=== PATIENT | female | born 1960 | race African-American/Black ===

== ENCOUNTER → 2018-12-31 | Day surgery (SDC) | payer MEDICARE ==
[2018-12-24 16:09] LABS: BASOPHILS # (AUTO) 0.1 (0.0-0.1); BASOPHILS % 2.1 % (0.0-1.0); EOSINOPHILS % 22.5 % (0.0-6.0); HEMATOCRIT 37.8 % (34.2-44.1); HEMOGLOBIN 11.8 g/dL (12.0-16.0); LYMPHOCYTES # (AUTO) 0.7 (1.0-3.2); MEAN CORPUSCULAR HEMOGLOBIN 28.4 pg (28-32); MEAN CORPUSCULAR HGB CONC 31.2 g/dL (31-35); MEAN CORPUSCULAR VOLUME 90.9 fL (81-99); MONOCYTES # (AUTO) 0.7 (0.2-0.8); MONOCYTES % 15.3 % (4.4-11.3); NEUTROPHILS # (AUTO) 1.9 (2.1-6.9); NEUTROPHILS % 44.1 % (38.7-80.0); PLATELET COUNT 146 x10e3/uL (140-360); RED BLOOD COUNT 4.16 x10e6/uL (3.6-5.1); RED CELL DISTRIBUTION WIDTH 16.5 % (11.7-14.4)
[~2018-12-31] MED LIST: CLONAZEPAM1 MG PO; DOXEPIN HCL25 MG PO; FUROSEMIDE40 MG PO; HYDRALAZINE HCL25 MG PO; HYDROXYZINE HCL25 MG PO; LYRICA50 MG PO; MIDAZOLAM HCL 2 MG/2 ML VIAL ONE; ONDANSETRON ODT8 MG PO; PROCARDIA XL30 MG PO; PROPOFOL IV EMULSION 10 MG/ML 50 ML VIAL ONE; SODIUM CHLORIDE 0.9% 500ML 500 ML ONE; VIT D3 PO; [UNRECOGNIZED DRUG - OTHER] PO
--- OUTSIDE RECORDS SUMMARY | 2018-12-31 09:30 | XMS REPORT | Clinical Summary ---
Author Author Lydia Mandaen Organization Lydia Mandaen Address Unknown Phone Unavailable Care Team Providers Care Commercial Green Building Designer Name Role Phone Vikki Gamez MD PCP Allergies Comments Active Allergy Reactions Severity Noted Date Clindamycin Rash Low 03/01/2018 Penicillins Anaphylaxis High 03/01/2018 Medications End Date Status Medication Sig Dispensed Refills Start Date Active lisinopril Take 20 mg by 0 (PRINIVIL,ZESTRIL) 20 mg mouth daily. tablet Active amLODIPine (NORVASC) 5 mg Take 5 mg by 0 tablet mouth daily. 03/05/2018 azithromycin (ZITHROMAX) Take first 2 6 tablet 0 250 MG tablet tablets 8 together, then 1 every day until finished. 03/08/2018 promethazine-codeine Take 5 mL by 118 mL 0 (PHENERGAN with CODEINE) mouth every 4 8 6.25-10 mg/5 mL syrup (four) hours as needed for cough for up to 7 days. 04/13/2018 hydrOXYzine (ATARAX) 25 Take 1 tablet 30 tablet 0 MG tablet (25 mg total) 8 by mouth 2 (two) times a day as needed for itching for up to 15 days. Active Problems Problem Noted Date Dyspnea 03/28/2018 Encounters Care Team Description Date Type Specialty Christofer Cortés MD Joglekar, Swati, MD Bavare, Arusha Amod, MD Dyspnea, unspecified type (Primary Dx); Unstable angina 03/28/2018 Emergency General Internal Medicine - 03/29/2018 Lewis Goldman, Hypervolemia, unspecified hypervolemia type (Primary Dx) 03/01/2018 Emergency Emergency Medicine - 03/02/2018 after 12/30/2017 Social History Date Tobacco Use Types Packs/Day Years Used Never Smoker Smokeless Tobacco: Never Used Alcohol Use Drinks/Week oz/Week Comments No Sex Assigned at Date Recorded Not on file Industry Job Start Date Occupation Not on file Not on file Not on file Travel End Travel History Travel Start No recent travel history available. Last Filed Vital Signs Time Taken Vital Sign Reading 03/29/2018 5:45 PM CDT Blood Pressure 154/87 03/29/2018 5:45 PM CDT Pulse 72 03/29/2018 5:45 PM CDT Temperature 36.2 C (97.1 F) 03/29/2018 5:45 PM CDT Respiratory Rate 18 03/29/2018 5:45 PM CDT Oxygen Saturation 98% - Inhaled Oxygen - Concentration 03/28/2018 3:39 PM CDT Weight 86.2 kg (190 lb) 03/28/2018 10:28 PM CDT Height 165.1 cm (5' 5") 03/28/2018 3:39 PM CDT Body Mass Index 31.62 Plan of Treatment Health Maintenance Due Date Last Done Comments CERVICAL CANCER SCREENING 1982 BREAST CANCER SCREENING 2011 COLON CANCER SCREENING 2011 SHINGLES VACCINES (#1) 2011 INFLUENZA VACCINE 03/27/2019 07/11/2000, 06/03/1999 Procedures Comments Procedure Name Priority Date/Time Associated Diagnosis HEPATITIS B SURFACE AB, Routine 03/29/2018 QUANTITATIVE 2:40 PM CDT POC GLUCOSE Routine 03/29/2018 11:44 AM CDT HEPATITIS B SURFACE STAT 03/29/2018 ANTIGEN 10:09 AM CDT PROTHROMBIN TIME WITH INR Routine 03/29/2018 10:09 AM CDT HC COMPLETE BLD COUNT Routine 03/29/2018 W/AUTO DIFF 8:31 AM CDT POC GLUCOSE Routine 03/29/2018 8:19 AM CDT HEMOGLOBIN A1C Routine 03/29/2018 5:08 AM CDT ZZESTIMATED GFR Routine 03/29/2018 5:08 AM CDT PHOSPHORUS LEVEL Routine 03/29/2018 5:08 AM CDT MAGNESIUM LEVEL Routine 03/29/2018 5:08 AM CDT HC COMPLETE BLD COUNT Routine 03/29/2018 W/AUTO DIFF 5:08 AM CDT BASIC METABOLIC PANEL Routine 03/29/2018 5:08 AM CDT B NATRIURETIC PEPTIDE Routine 03/29/2018 5:08 AM CDT POC GLUCOSE Routine 03/29/2018 4:11 AM CDT POC GLUCOSE Routine 03/28/2018 11:12 PM CDT PHOSPHORUS LEVEL Routine 03/28/2018 4:35 PM CDT ZZESTIMATED GFR Routine 03/28/2018 4:35 PM CDT B NATRIURETIC PEPTIDE Routine 03/28/2018 4:35 PM CDT TROPONIN Routine 03/28/2018 4:35 PM CDT COMPREHENSIVE METABOLIC Routine 03/28/2018 PANEL 4:35 PM CDT PROTHROMBIN TIME WITH INR Routine 03/28/2018 4:35 PM CDT HC COMPLETE BLD COUNT Routine 03/28/2018 W/AUTO DIFF 4:35 PM CDT ECG ED PRELIMINARY Routine 03/28/2018 INTERPRETATION 4:34 PM CDT ECG 12-LEAD STAT 03/28/2018 4:22 PM CDT XR CHEST 1 VW PORTABLE STAT 03/28/2018 4:13 PM CDT ECG ED PRELIMINARY Routine 03/01/2018 INTERPRETATION 10:51 PM CDT TROPONIN STAT 03/01/2018 8:30 PM CDT CREATINE KINASE, TOTAL STAT 03/01/2018 (CPK) 8:30 PM CDT ZZESTIMATED GFR STAT 03/01/2018 8:30 PM CDT B NATRIURETIC PEPTIDE STAT 03/01/2018 8:30 PM CDT BASIC METABOLIC PANEL STAT 03/01/2018 8:30 PM CDT HC COMPLETE BLD COUNT STAT 03/01/2018 W/AUTO DIFF 8:30 PM CDT XR CHEST 2 VW STAT 03/01/2018 8:10 PM CDT ECG 12-LEAD STAT 03/01/2018 7:36 PM CDT after 12/30/2017 Results * Hepatitis B surface Ab, quantitative (03/29/2018 2:40 PM CDT) Hepatitis B surface Ab 4.89 IU/L [facility] Comment: The anti-HBs is less than 10 IU/L and is therefore negative. There is no evidence of recovery from hepatitis B infection or evidence of antibody response to HBV vaccination. An anti-HBs result greater than or equal to 10 IU/L implies immunity. For post-vaccination antibody testing guidelines for the general public refer to MMWR August 18, 2005/Vol. 54(No. 16);1-23, and for healthcare workers refer to MMWR August 15, 2013/Vol. 62(No. 10);1-19. Reference Interval: anti-HBs 9.99 IU/L or less ....... Negative 10.00 IU/L or greater .... Positive Results greater than 1,000.00 IU/L are reported as greater than 1,000.00 IU/L. This assay should not be used for blood donor screening, associated re-entry protocols, or for screening Human Cell, Tissues and Cellular and Tissue-Based Products (HCT/P). Performed by [facility], [address] [place], [place] [id number] [email or web address], Ed Hogan MD - Lab. Director Specimen Serum Performing Organization Address City/State/Zipcode Phone Number [facility] [address] [place] [address] * POC glucose (03/29/2018 11:44 AM CDT) Only the most recent of 4 results within the time period is included. POC glucose 118 (H) 65 - 100 mg/dL [facility] Comment: PATHOLOGY AND Meter ID: [id number] GENOMIC MEDICINE Recycling Program Manager: Josiane Patton Performing Organization Address City/[facility]/Zipcode Phone Number [address] [place] [address] PATHOLOGY AND GENOMIC MEDICINE * Hepatitis B surface antigen (03/29/2018 10:09 AM CDT) Hepatitis B surface Ag Non-reactive Non-reactive [facility] PATHOLOGY AND [employer] [facility] Specimen Blood Performing Organization Address City/[facility] [place] [address] PATHOLOGY AND [employer] [facility] * Prothrombin time with INR (03/29/2018 10:09 AM CDT) Only the most recent of 2 results within the time period is included. Prothrombin time 16.1 (H) 12.0 - 15.0 sec [facility] PATHOLOGY AND GENOMIC MEDICINE INR 1.27 (H) 0.92 - 1.12 [facility] Comment: PATHOLOGY AND For patients on anticoagulant GENOMIC MEDICINE therapy, reference ranges below: Indication: INR Value Treatment of Venous Thrombosis, 2.0-3.0 pulmonary emboli, or prophylaxis of a venous thrombosis, or systemic emboli. High dose, high risk patients 3.0-4.5 with mechanical valves. NOTE:INR values over 3.0 are sometimes associated with gastrointestinal hemorrhage, especially values over 4.0. Specimen Blood Performing Organization Address City/[facility] [place] [place] [address] PATHOLOGY AND [employer] [facility] * CBC with platelet and differential (03/29/2018 8:31 AM CDT) Only the most recent of 4 results within the time period is included. WBC 5.8 4.2 - 11.0 k/uL [facility] PATHOLOGY AND GENOMIC MEDICINE RBC 4.63 4.04 - 5.86 m/uL [facility] PATHOLOGY AND GENOMIC MEDICINE HGB 12.5 11.5 - 15.3 g/dL [facility] PATHOLOGY AND GENOMIC MEDICINE HCT 40.3 34.0 - 45.0 % [facility] PATHOLOGY AND GENOMIC MEDICINE MCV 87.0 80.0 - 98.0 fL [facility] PATHOLOGY AND GENOMIC MEDICINE MCH 27.0 27.0 - 34.0 pg [facility] PATHOLOGY AND GENOMIC MEDICINE MCHC 31.0 (L) 31.5 - 36.5 g/dL [facility] PATHOLOGY AND GENOMIC MEDICINE RDW - SD 53.8 (H) 37.0 - 51.0 fL [facility] PATHOLOGY AND GENOMIC MEDICINE MPV 9.7 7.4 - 10.4 fL [facility] PATHOLOGY AND GENOMIC MEDICINE Platelet count 159 150 - 400 k/uL [facility] PATHOLOGY AND GENOMIC MEDICINE Nucleated RBC 0.00 /100 WBC [facility] PATHOLOGY AND GENOMIC MEDICINE Neutrophils 53.8 36.0 - 66.0 % [facility] PATHOLOGY AND GENOMIC MEDICINE Lymphocytes 22.6 (L) 24.0 - 44.0 % [facility] PATHOLOGY AND GENOMIC MEDICINE Monocytes 11.8 (H) 0.0 - 6.0 % [facility] PATHOLOGY AND GENOMIC MEDICINE Eosinophils 10.8 (H) 0.0 - 6.0 % [facility] PATHOLOGY AND GENOMIC MEDICINE Basophils 0.7 0.0 - 1.2 % [facility] PATHOLOGY AND GENOMIC MEDICINE Immature granulocytes 0.3 0.0 - 1.0 % [facility] PATHOLOGY AND GENOMIC MEDICINE Specimen Blood Performing Organization Address City/State/Zipcode Phone Number [place] [phone] [place] [address] PATHOLOGY AND GENOMIC MEDICINE * Estimated GFR (03/29/2018 5:08 AM CDT) Only the most recent of 3 results within the time period is included. GFR Non Af Amer 5 (A) mL/min/1.73 m2 [facility] PATHOLOGY AND GENOMIC MEDICINE GFR Af Amer 6 (A) mL/min/1.73 m2 [facility] Comment: PATHOLOGY AND Chronic kidney disease: <60 GENOMIC MEDICINE mL/min/1.73m2 Kidney failure: <15 mL/min/1.73m2 The estimated GFR is calculated from the IDMS-traceable Modification of Diet in Renal Disease Equation. The accuracy of the calculation is poor when the creatinine is normal. Calculated values >90 mL/min/1.73m2 are not reported. This equation has not been validated in children (<18 years), women, the elderly (>70 years), or ethnic groups other than Caucasians and Americans. Specimen Plasma specimen Performing Organization Address City/[facility] [place] [address] PATHOLOGY AND [facility] MEDICINE * Phosphorus level (03/29/2018 5:08 AM CDT) Only the most recent of 2 results within the time period is included. Phosphorus 5.0 (H) 2.4 - 4.5 mg/dL [facility] OF PATHOLOGY AND [facility] MEDICINE Specimen Plasma specimen Performing Organization Address [facility] [place] [address] PATHOLOGY AND [facility] MEDICINE * B natriuretic peptide (03/29/2018 5:08 AM CDT) Only the most recent of 3 results within the time period is included. BNP 3,350 (H) 0 - 100 pg/mL [facility] PATHOLOGY AND [employer] [facility]ICINE Specimen Blood Performing Organization Address [facility] [place] [address] PATHOLOGY AND [employer] [facility]ICINE * Magnesium level (03/29/2018 5:08 AM CDT) Magnesium 2.00 1.60 - 2.60 mg/dL [facility] PATHOLOGY AND [employer] [facility]INE Specimen Plasma specimen Performing Organization Address [facility] [place] [address] PATHOLOGY AND [employer] [facility]ICINE * Hemoglobin A1c (03/29/2018 5:08 AM CDT) Hemoglobin A1C 7.1 (H) 4.0 - 6.0 % [facility] Comment: PATHOLOGY AND GENOMIC MEDICINE Less than 6% - Goal of therapy for Type II Diabetes Less than 7%-Goal of therapy for Type I Diabetes Less than 8%-Accepta ble control for Type I or Type II Diabetes Greater than 8%-Unacceptabl e control; action indicated. ([id number]) Specimen Blood Performing Organization Address City/[facility]/Zipcode Phone Number [address] [place] [address] PATHOLOGY AND GENOMIC MEDICINE * Basic metabolic panel (03/29/2018 5:08 AM CDT) Only the most recent of 2 results within the time period is included. Sodium 130 (L) 135 - 150 mEq/L [facility] PATHOLOGY AND GENOMIC MEDICINE Potassium 4.0 3.5 - 5.0 mEq/L [facility] PATHOLOGY AND GENOMIC MEDICINE Chloride 91 (L) 98 - 112 mEq/L [facility] PATHOLOGY AND GENOMIC MEDICINE CO2 26 24 - 31 mmol/L [facility] PATHOLOGY AND GENOMIC MEDICINE Anion gap 13@ANIO 7 - 15 mEq/L [facility] OF PATHOLOGY AND GENOMIC MEDICINE BUN 39 (H) 7 - 18 mg/dL [facility] PATHOLOGY AND GENOMIC MEDICINE Creatinine 8.80 (H) 0.50 - 0.90 mg/dL [facility] PATHOLOGY AND GENOMIC MEDICINE Glucose 129 (H) 65 - 100 mg/dL [facility] PATHOLOGY AND GENOMIC MEDICINE Calcium 8.6 8.3 - 10.2 mg/dL [facility] PATHOLOGY AND [employer] [facility] Specimen Plasma specimen Performing Organization Address [facility] Phone Number [address] [place] [address] PATHOLOGY AND [employer] [facility]ICINE * Troponin (03/28/2018 4:35 PM CDT) Only the most recent of 2 results within the time period is included. Troponin <0.30 0.00 - 0.30 ng/mL [facility] Comment: PATHOLOGY AND 0.11 - 1.49 GENOMIC MEDICINE ng/mlMay indicate increased risk of acute coronary syndrome. >=1.5 ng/ml Consistent with acute myocardial infarction. The diagnostic value of a single normal or non-diagnostic result is questionable.Serial samples at 2-6 hour intervals are required to rule out acute myocardial injury. Specimen Plasma specimen Performing Organization Address City/State/Zipcode Phone Number [address] [place] [address] PATHOLOGY AND [employer] [facility] * Comprehensive metabolic panel (03/28/2018 4:35 PM CDT) Sodium 130 (L) 135 - 150 mEq/L [facility] DEPARTMENT OF PATHOLOGY AND GENOMIC MEDICINE Potassium 3.9 3.5 - 5.0 mEq/L [facility] PATHOLOGY AND GENOMIC MEDICINE Chloride 90 (L) 98 - 112 mEq/L [facility] PATHOLOGY AND GENOMIC MEDICINE CO2 24 24 - 31 mmol/L [facility] PATHOLOGY AND GENOMIC MEDICINE Anion gap 16@ANIO (H) 7 - 15 mEq/L [facility] OF PATHOLOGY AND GENOMIC MEDICINE BUN 37 (H) 7 - 18 mg/dL [facility] PATHOLOGY AND GENOMIC MEDICINE Creatinine 8.30 (H) 0.50 - 0.90 mg/dL [facility] PATHOLOGY AND GENOMIC MEDICINE Glucose 249 (H) 65 - 100 mg/dL [facility] OF PATHOLOGY AND GENOMIC MEDICINE Calcium 8.3 8.3 - 10.2 mg/dL [facility] OF PATHOLOGY AND GENOMIC MEDICINE Protein 7.1 6.3 - 8.3 g/dL [facility] OF PATHOLOGY AND GENOMIC MEDICINE Albumin 3.2 (L) 3.5 - 5.0 g/dL [facility] OF PATHOLOGY AND GENOMIC MEDICINE A/G ratio 0.8 0.7 - 3.8 [facility] PATHOLOGY AND GENOMIC MEDICINE Alkaline phosphatase 196 (H) 0 - 104 U/L [facility] PATHOLOGY AND GENOMIC MEDICINE AST 29 10 - 35 U/L [facility] PATHOLOGY AND GENOMIC MEDICINE ALT 23 5 - 50 U/L [facility] OF PATHOLOGY AND GENOMIC MEDICINE Total bilirubin 0.6 0.2 - 1.2 mg/dL [facility] OF PATHOLOGY AND GENOMIC MEDICINE Specimen Plasma specimen Performing Organization Address City/State/Zipcode Phone Number [facility] [place] [address] PATHOLOGY AND GENOMIC MEDICINE * ECG ED Preliminary Interpretation - NOT AN ORDER (03/28/2018 4:34 PM CDT) Only the most recent of 2 results within the time period is included. Narrative Performed At Christofer Cortés MD 03/28/20184:35 PM ECG ED Preliminary Interpretation - Not an Order Performed by: CHRISTOFER CORTÉS Authorized by: CHRISTOFER CORTÉS ECG reviewed by ED Physician in the absence of a heel blacker: yes Previous ECG: Previous ECG:Compared to current Interpretation: Interpretation: normal Rate: ECG rate:84 ECG rate assessment: normal Rhythm: Rhythm: sinus rhythm Ectopy: Ectopy: none QRS: QRS axis:Normal Conduction: Conduction: normal ST segments: ST segments:Normal T waves: T waves: normal * ECG 12 lead (03/28/2018 4:22 PM CDT) Only the most recent of 2 results within the time period is included. Ventricular rate 84 [facility] Atrial rate 84 [facility] W[place] interval 156 [facility] QRSD interval 86 [facility] QT interval 402 [facility] QTC interval 475 [facility] P axis 1 70 [facility] QRS axis 1 62 [facility] T wave axis 126 [facility] EKG impression Sinus rhythm with occasional [facility] premature ventricular complexes-Possible Left atrial enlargement-Cannot rule out Anterior infarct (cited on or before 01-MAR-2018)-Abnormal ECG-In automated comparison with ECG of 01-MAR-2018 19:36,-premature ventricular complexes are now present- Performing Organization Address [facility] Phone Number [facility] [address] [place] [address] * XR Chest 1 Vw Portable (03/28/2018 4:13 PM CDT) Narrative Performed At EXAMINATION:XR CHEST 1 VW PORTABLE [facility] CLINICAL HISTORY:Chest Pain, ICU ptrecent tube or catheter insert COMPARISON:March 01, 2018 chest IMPRESSION: New minimal costophrenic angle effusion on the right Cardiomegaly with atherosclerosis unchanged. No central congestion No focal infiltrate. Left IJ dialysis catheter remains over right atrium. Cervical fixator as on previous [id number] Procedure Note Hm Interface, Radiology Results Incoming - 03/28/2018 4:21 PM CDT EXAMINATION: XR CHEST 1 VW PORTABLE CLINICAL HISTORY: Chest Pain, ICU pt recent tube or catheter insert COMPARISON: March 01, 2018 chest IMPRESSION: New minimal costophrenic angle effusion on the right Cardiomegaly with atherosclerosis unchanged. No central congestion No focal infiltrate. Left IJ dialysis catheter remains over right atrium. Cervical fixator as on previous [id number] Performing Organization Address [facility] Phone Number [facility] [address] [place] [address] * Creatine kinase, total (CPK) (03/01/2018 8:30 PM CDT) Creatine kinase 201 (H) 26 - 192 U/L [facility] PATHOLOGY AND GENOMIC MEDICINE Specimen Plasma specimen Performing Organization Address City/State/Zipcode Phone Number [facility] [address] [place] [address] PATHOLOGY AND GENOMIC MEDICINE * XR Chest 2 Vw (03/01/2018 8:10 PM CDT) Narrative Performed At EXAMINATION:XR CHEST 2 VW [facility] CLINICAL HISTORY:Cough COMPARISON:None IMPRESSION: Venous catheter is in good position. The heart is enlarged, and the lungs are clear. [facility]-[id number] Procedure Note Hm Interface, Radiology Results Incoming - 03/01/2018 8:16 PM CDT EXAMINATION: XR CHEST 2 VW CLINICAL HISTORY: Cough COMPARISON: None IMPRESSION: Venous catheter is in good position. The heart is enlarged, and the lungs are clear. [facility]-[id number] Performing Organization Address City/[facility] Phone Number [facility] [address] [place] [address] after 12/30/2017 Insurance Payer Benefit Subscriber ID Type Phone Address Plan / Group [employer] TRANSPLANT MEDICARE [employer] TXP xxxxxxxx Transplant MEDICARE MCR WELLCARE WELLCARE xxxxxxxx [facility] Advance Directives Patient has advance care planning documents on file. For more information, deisi acharya contact: Enrike Barraza [address] [place] [address]
--- OUTSIDE RECORDS SUMMARY | 2018-12-31 09:30 | XMS REPORT | Clinical Summary ---
Author Author [facility] Address Unknown Phone Unavailable Care Team Providers Care Roller Printer Name Role Phone Sharpless PCP Unavailable Allergies Comments Active Allergy Reactions Severity Noted Date Clindamycin 08/03/2017 Penicillins 08/03/2017 Medications End Date Status Medication Sig Dispensed Refills Start Date Active amLODIPine (NORVASC) 10 Take 10 mg by 0 MG tablet mouth daily. Active atorvastatin (LIPITOR) 10 Take 10 mg by 0 MG tablet mouth daily. Active furosemide (LASIX) 20 MG Take 20 mg by 0 tablet mouth 2 (two) times daily. Active hydrALAZINE (APRESOLINE) Take 25 mg by 0 25 MG tablet mouth 3 (three) times daily. Active traMADol (ULTRAM) 50 mg Take 50 mg by 0 tablet mouth every 6 (six) hours as needed for Pain. Active Problems Not on file Encounters Care Team Description Date Type Specialty Elizabeth Felix RN Follow-up 05/10/2018 Telephone Transplant after 12/30/2017 Family History Medical History Relation Name Comments Hypertension Father Diabetes Mother Heart disease Mother Relation Name Status Comments Father Mother Social History Date Tobacco Use Types Packs/Day Years Used Never Smoker Smokeless Tobacco: Never Used Alcohol Use Drinks/Week oz/Week Comments No Sex Assigned at Date Recorded Not on file Industry Job Start Date Occupation Not on file Not on file Not on file Travel End Travel History Travel Start No recent travel history available. Last Filed Vital Signs Not on file Plan of Treatment Not on file Results Not on fileafter 12/30/2017 Insurance Payer Benefit Subscriber ID Type Phone Address Plan / Group [facility] - OPTUM xxxxxxxx Transplant MEDICARE [facility] MGD WELLCARE xxxxxxxx CARE [facility]
--- OUTSIDE RECORDS SUMMARY | 2018-12-31 09:30 | XMS REPORT ---
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 Allergies, Adverse Reactions, Alerts Allergy Name Allergy Type Status Severity Reaction(s) Onset Date Inactive Date Treating Clinician Comments Penicillins DA Active SV 2018-07-23 00:00:00 clindamycin DA Active SV 2018-07-23 00:00:00 Penicillins DA Active SV 2018-05-14 00:00:00 clindamycin DA Active SV 2018-05-14 00:00:00 Penicillins DA Active SV 2017-10-02 00:00:00 clindamycin DA Active SV 2017-10-02 00:00:00 Medications This patient has no known medications. Results Test Description Test Time Test Comments Text Results Atomic Results Result Comments U/S, ABDOMINAL, COMPLETE 2017-12-11 16:36:00 Reason for Exam:->Pre kidney transplant evaluation. FINAL REPORT Abdominal ultrasound dated 12/11/2017 Clinical information:Pre kidney transplant evaluation. Comment: Real-time transabdominal ultrasound was performed. Liver is enlarged and measures 17.6 cm in length. The echogenicity of the liver is normal. No focal lesion is noted in the liver. Spleen is normal in size without focal abnormality. Gallbladder is surgically absent. No biliary dilatation is seen. Common bile duct measures 5 mm in diameter. Main portal vein measures 13 mm in diameter. Pancreas is incompletely visualized. Right kidney measures 8.0 x 4.1 x 4.0 cm. Left kidney measures 8.4 x 5.4 x 4.9 cm. Echogenicity of both kidney is increased. No hydronephrosis or solid mass seen in either kidney. No cyst is seen in the either kidney. No ascites is present in the abdomen. Abdominal aorta is normal in caliber. IVC and Hepatic veins are patent. Impression: 1. Hepatomegaly.2. Atrophic kidneys.3. Status post cholecystectomy without biliary dilatation. Sig kellie: Linette Tay MDReport Verified Date/Time: 12/11/2017 16:36:54 Reading Location: [address] Ultrasound Reading Room , DIGITAL, MAMMO, SCREENING, BILATERAL INCLUDING CAD 2017-12-11 15:06:00 Reason for Exam:->esrd/kidney transplant evaluation #[id number] - MM, DIGITAL, MAMMO, SCREENING, BILATERAL INCLUDING CADBILATERAL DIGITAL SCREENING MAMMOGRAM WITH CAD: 12/11/2017No prior exams were available for comparison. There are scattered fibroglandular elements in both breasts that could obscure a lesion on mammography. Current study was also evaluated with a Computer Aided Detection (CAD) system. Benign appearing vascular calcifications and benign appearing calcifications are present in the right breast and benign appearing calcifications are present in the left breast. No significant masses, calcifications, or other findings are seen in either breast. IMPRESSION: BENIGNThere is no mammographic evidence of malignancy. A 1 year screening mammogram is recommended. Rafia Jonas M.D. pth/penrad:12/11/2017 15:06:37 Normal Exam Mammogram BI-RADS: 2 Benign [id number] HROMBIN TIME/INR 2017-12-11 09:24:00 PROTIME (BEAKER) (test jjfp=404) 15.4 seconds 11.7-14.7 INR (BEAKER) (test plko=976) 1.2 <=5.9 RECOMMENDED COUMADIN/WARFARIN INR THERAPY RANGESSTANDARD DOSE: 2.0 - 3.0 Inclu valente: PROPHYLAXIS for venous thrombosis, systemic embolization; TREATMENT for tao ous thrombosis and/or pulmonary embolus.HIGH RISK: Target INR is 2.5-3.5 for pat ients with mechanical heart valves.VARICELLA ZOSTER ANTIBODY, [id number] 15:03:00* Test Item Value Reference Range Comments VARICELLA ZOSTER IGG (AL) (BEAKER) (test nqcr=8776) 4.4 Al VARICELLA ZOSTER RESULT INTERPRETATIONS: <=0.8 Al Nonreactive: Presumed non-immune to VZV 0.9-1.0 Al Equivocal >=1.1 Al Reactive: Presumed immune to VZVCYTOMEGALOVIRUS ANTIBODY, [id number] 14:57:00* Test Item Value Reference Range Comments CYTOMEGALOVIRUS IGG ANTIBODY (BEAKER) (test zjgh=705) Negative CYTOMEGALOVIRUS ANTIBODY, [id number] 14:57:00* Test Item Value Reference Range Comments CYTOMEGALOVIRUS IGM ANTIBODY (BEAKER) (test hxao=920) Negative EBV-VCA ANTIBODY, [id number] 14:57:00* Test Item Value Reference Range Comments JEANCARLOS-MOORE VCA IGG (BEAKER) (test ffqj=984) Positive EBV-VCA ANTIBODY, [id number] 14:57:00* Test Item Value Reference Range Comments JEANCARLOS-MOORE VCA IGM (BEAKER) (test lcqp=543) Negative URINE [id number] 12:09:00* Test Item Value Reference Range Comments CULTURE (BEAKER) (test vdgl=9669) >100,000 col/mL skin dhruv [id number] 06:01:00* Test Item Value Reference Range Comments RPR SCREEN (BEAKER) (test crjz=277) Nonreactive Nonreactive HEMOGLOBIN [id number] 16:13:00* Test Item Value Reference Range Comments HEMOGLOBIN A1C (BEAKER) (test rped=006) 5.9 % 4.3-6.1 COMPREHENSIVE METABOLIC [id number] 14:44:00* Test Item Value Reference Range Comments TOTAL PROTEIN (BEAKER) (test qzgt=426) 8.1 gm/dL 6.0-8.3 ALBUMIN (BEAKER) (test fyxp=0890) 4.1 g/dL 3.5-5.0 ALKALINE PHOSPHATASE (BEAKER) (test exqz=017) 118 U/L 40-150 BILIRUBIN TOTAL (BEAKER) (test qzgo=510) 0.5 mg/dL 0.2-1.2 SODIUM (BEAKER) (test sobc=308) 136 meq/L 136-145 POTASSIUM (BEAKER) (test zgyt=881) 4.6 meq/L 3.5-5.1 CHLORIDE (BEAKER) (test inmr=413) 99 meq/L 98-107 CO2 (BEAKER) (test jiqa=509) 26 meq/L 22-29 BLOOD UREA NITROGEN (BEAKER) (test infd=823) 38 mg/dL 7-21 CREATININE (BEAKER) (test poph=321) 6.09 mg/dL 0.57-1.25 GLUCOSE RANDOM (BEAKER) (test ytus=443) 78 mg/dL 70-105 CALCIUM (BEAKER) (test lfzk=475) 9.2 mg/dL 8.4-10.2 AST (SGOT) (BEAKER) (test gjfh=514) 16 U/L 5-34 ALT (SGPT) (BEAKER) (test mhom=185) 9 U/L 6-55 EGFR (BEAKER) (test zhki=9442) 9 mL/min/1.73 sq m ESTIMATED GFR IS NOT ACCURATE CREATININE CLEARANCE IN PREDICTING GLOMERULAR FILTRATION RATE. ESTIMATED GFR IS NOT APPLICABLE FOR DIALYSIS PATIENTS. HEPATITIS B SURFACE [id number] 14:26:00* Test Item Value Reference Range Comments HEPATITIS B SURFACE ANTIGEN (2) (BEAKER) (test drbl=7391) Nonreactive Nonreactive HEPATITIS B SURFACE [id number] 14:26:00* Test Item Value Reference Range Comments HEPATITIS B SURFACE ANTIBODY (BEAKER) (test mfqk=667) 16.5 mIU/mL <8.0 HEPATITIS B CORE ANTIBODY, [id number] 14:26:00* Test Item Value Reference Range Comments HEPATITIS B CORE IGM ANTIBODY (BEAKER) (test hgfd=759) Nonreactive Nonreactive HEPATITIS C [id number] 14:26:00* Test Item Value Reference Range Comments HEPATITIS C ANTIBODY (BEAKER) (test fjid=798) Nonreactive Nonreactive HIV-1 ANTIGEN WITH HIV-1/2 [id number] 14:26:00* Test Item Value Reference Range Comments HIV-1 ANTIGEN WITH HIV 1\T\2 ANTIBODY (2) (BEAKER) (test ualz=8205) Nonreactive Nonreactive URINALYSIS W/ [id number] 13:41:00* Test Item Value Reference Range Comments COLOR (BEAKER) (test spvx=122) Light Yellow CLARITY (BEAKER) (test jziy=472) Clear SPECIFIC GRAVITY UA (BEAKER) (test npln=408) 1.008 1.001-1.035 PH UA (BEAKER) (test gosw=721) 8.0 5.0-8.0 PROTEIN UA (BEAKER) (test pzva=151) 300 mg/dL Negative GLUCOSE UA (BEAKER) (test slqg=505) Negative Negative KETONES UA (BEAKER) (test urwh=397) Negative Negative BILIRUBIN UA (BEAKER) (test tjsc=181) Negative Negative BLOOD UA (BEAKER) (test vsbs=674) Trace Negative NITRITE UA (BEAKER) (test jssb=155) Negative Negative LEUKOCYTE ESTERASE UA (BEAKER) (test xqqn=375) Negative Negative UROBILINOGEN UA (BEAKER) (test grud=638) 0.2 mg/dL 0.2-1.0 RBC UA (BEAKER) (test emia=596) 1 /HPF WBC UA (BEAKER) (test phbf=426) 2 /HPF SQUAMOUS EPITHELIAL (BEAKER) (test czsd=487) 6 /HPF HYALINE CASTS (BEAKER) (test lnde=993) 2 /LPF SOURCE(BEAKER) (test ltbr=8415) URIC [id number] 13:21:00* Test Item Value Reference Range Comments URIC ACID (BEAKER) (test nunf=680) 3.9 mg/dL 2.6-7.2 [id number] 13:21:00* Test Item Value Reference Range Comments PHOSPHORUS (BEAKER) (test vels=313) 3.6 mg/dL 2.3-4.7 LIPID [id number] 13:21:00* Test Item Value Reference Range Comments TRIGLYCERIDES (BEAKER) (test vkfc=439) 38 mg/dL CHOLESTEROL (BEAKER) (test pqmk=615) 146 mg/dL HDL CHOLESTEROL (BEAKER) (test kgff=248) 76 mg/dL LDL CHOLESTEROL CALCULATED (BEAKER) (test ncmq=263) 62 mg/dL Triglyceride Reference Range: Low Risk <150 Borderline 150-199 High Risk 200-499 Very High Risk >=500Cholesterol Reference Range: Low Risk <200 Borderline 200-239 High Risk >240HDL Cholesterol Reference Range: Low Risk >=60 High Risk <40LDL Cholesterol Reference Range: Optimal <100 Near Optimal 100-129 Borderline 130-159 High 160-189 Very High >=190 GAMMA GLUTAMYL TRANSFERASE (GGT)2017-10-30 13:21:00* Test Item Value Reference Range Comments GAMMA GLUTAMYL TRANSFERASE (BEAKER) (test dcue=651) 49 U/L 9-64 LACTATE DEHYDROGENASE (LDH)2017-10-30 13:21:00* Test Item Value Reference Range Comments LACTATE DEHYDROGENASE (BEAKER) (test rblp=413) 347 U/L 125-220 PTH, [id number] 13:14:00* Test Item Value Reference Range Comments PARATHYROID HORMONE INTACT (BEAKER) (test urmt=360) 541.3 pg/mL 8.5-72.5 CBC W/PLT COUNT & AUTO [id number] 12:52:00* Test Item Value Reference Range Comments WHITE BLOOD CELL COUNT (BEAKER) (test xisq=538) 10.0 K/ L 3.5-10.5 RED BLOOD CELL COUNT (BEAKER) (test dahn=984) 3.75 M/ L 3.93-5.22 HEMOGLOBIN (BEAKER) (test gwpb=798) 10.5 GM/DL 11.2-15.7 HEMATOCRIT (BEAKER) (test atjh=428) 33.1 % 34.1-44.9 MEAN CORPUSCULAR VOLUME (BEAKER) (test aisd=127) 88.3 fL 79.4-94.8 MEAN CORPUSCULAR HEMOGLOBIN (BEAKER) (test lwgt=972) 28.0 pg 25.6-32.2 MEAN CORPUSCULAR HEMOGLOBIN CONC (BEAKER) (test pgrc=417) 31.7 GM/DL 32.2-35.5 RED CELL DISTRIBUTION WIDTH (BEAKER) (test rvdq=289) 14.3 % 11.7-14.4 PLATELET COUNT (BEAKER) (test oost=484) 240 K/CU MM 150-450 MEAN PLATELET VOLUME (BEAKER) (test aeyk=260) 8.9 fL 9.4-12.3 NUCLEATED RED BLOOD CELLS (BEAKER) (test hlsw=566) 0 /100 WBC 0-0 NEUTROPHILS RELATIVE PERCENT (BEAKER) (test bciu=578) 56 % LYMPHOCYTES RELATIVE PERCENT (BEAKER) (test vvvh=527) 15 % MONOCYTES RELATIVE PERCENT (BEAKER) (test kbku=114) 12 % EOSINOPHILS RELATIVE PERCENT (BEAKER) (test rnbr=424) 15 % BASOPHILS RELATIVE PERCENT (BEAKER) (test higz=440) 1 % NEUTROPHILS ABSOLUTE COUNT (BEAKER) (test mjkv=661) 5.57 K/ L 1.56-6.13 LYMPHOCYTES ABSOLUTE COUNT (BEAKER) (test jaiv=872) 1.49 K/ L 1.18-3.74 MONOCYTES ABSOLUTE COUNT (BEAKER) (test xium=585) 1.23 K/ L 0.24-0.36 EOSINOPHILS ABSOLUTE COUNT (BEAKER) (test sysc=112) 1.53 K/ L 0.04-0.36 BASOPHILS ABSOLUTE COUNT (BEAKER) (test mxor=558) 0.09 K/ L 0.01-0.08 IMMATURE GRANULOCYTES-RELATIVE PERCENT (BEAKER) (test jgto=0678) 0 % 0-1 [id number] 12:43:00* Test Item Value Reference Range Comments PROTIME (BEAKER) (test gniz=917) 14.7 seconds 11.7-14.7 INR (BEAKER) (test bwzp=979) 1.2 <=5.9 PARTIAL THROMBOPLASTIN TIME (BEAKER) (test gamm=308) 37.4 seconds 22.5-36.0 RECOMMENDED COUMADIN/WARFARIN INR THERAPY RANGESSTANDARD DOSE: 2.0 - 3.0 Inclu valente: PROPHYLAXIS for venous thrombosis, systemic embolization; TREATMENT for tao ous thrombosis and/or pulmonary embolus.HIGH RISK: Target INR is 2.5-3.5 for pat ients with mechanical heart valves.
[2018-12-31 11:28] LABS: ANION GAP 18.4 mmol/L (8-16); CALCIUM 9.5 mg/dL (8.4-10.2); CREATININE, SERUM 8.23 mg/dL (0.57-1.11); POTASSIUM 4.4 mmol/L (3.5-5.1)
[2018-12-31 14:15] VITALS: BP 135/65
== END | disposition home or self-care (01) ==
LOC: OR 09:28
PROVIDERS: ATTEND Internal Medicine Gastroenterology
DX: R13.10 Dysphagia, unspecified (principal); K29.70 Gastritis, unspecified, without bleeding; K52.9 Noninfective gastroenteritis and colitis, unspecified; K57.30 Diverticulosis of large intestine without perforation or abscess without bleeding; K59.00 Constipation, unspecified; K21.9 Gastro-esophageal reflux disease without esophagitis; K44.9 Diaphragmatic hernia without obstruction or gangrene; K64.8 Other hemorrhoids; J45.909 Unspecified asthma, uncomplicated; E11.22 Type 2 diabetes mellitus with diabetic chronic kidney disease; I12.0 Hypertensive chronic kidney disease with stage 5 chronic kidney disease or end stage renal disease; N18.6 End stage renal disease; F32.9 Major depressive disorder, single episode, unspecified; F41.9 Anxiety disorder, unspecified; Z88.1 Allergy status to other antibiotic agents; Z88.0 Allergy status to penicillin; Z01.812 Encounter for preprocedural laboratory examination; Z99.2 Dependence on renal dialysis; Z68.32 Body mass index [BMI] 32.0-32.9, adult; Z80.0 Family history of malignant neoplasm of digestive organs
CPT/HCPCS: 36415 ×2; 43239; 45380; 80048; 82948; 85025; J2250; J2704; J7040; 45378

== ENCOUNTER 2023-02-12 01:01 | Inpatient (IN) | payer MEDICARE ==
[2023-02-12] VITALS (12 sets, daily range): BP systolic 148–173; BP diastolic 59–86; PULSE 70–85; RESP 16–20; TEMP 97.4–98.2; O2SAT 97–100
[~2023-02-12] VITALS: Ht 165.1 cm; Wt 86.2 kg
[~2023-02-12 01:01] MED LIST changes: -MIDAZOLAM HCL 2 MG/2 ML VIAL ONE; -PROPOFOL IV EMULSION 10 MG/ML 50 ML VIAL ONE; -SODIUM CHLORIDE 0.9% 500ML 500 ML ONE
[2023-02-12] MEDS ORDERED: ALBUTEROL/IPRATROPIUM 3 ML NEB NEB STA (01:09)
[2023-02-12 01:41] LABS: BASOPHILS % 0.6 % (0.0-1.0); EOSINOPHILS # (AUTO) 0.5 (0.0-0.4); EOSINOPHILS % 7.6 % (0.0-6.0); HEMATOCRIT 31.3 % (34.2-44.1); LYMPHOCYTES # (AUTO) 0.6 (1.0-3.2); LYMPHOCYTES % 10.2 % (18.0-39.1); MEAN CORPUSCULAR HEMOGLOBIN 29.7 pg (28-32); MEAN CORPUSCULAR HGB CONC 31.9 g/dL (31-35); MEAN CORPUSCULAR VOLUME 92.9 fL (81-99); MONOCYTES # (AUTO) 0.8 (0.2-0.8); MONOCYTES % 13.1 % (4.4-11.3); NEUTROPHILS # (AUTO) 4.2 (2.1-6.9); NEUTROPHILS % 68.2 % (38.7-80.0); PLATELET COUNT 105 x10e3/uL (140-360); RED BLOOD COUNT 3.37 x10e6/uL (3.6-5.1); RED CELL DISTRIBUTION WIDTH 13.7 % (11.7-14.4)
[2023-02-12 01:58] LABS: ALBUMIN 2.9 g/dL (3.5-5.0); ALBUMIN/GLOBULIN RATIO 0.7 (0.8-2.0); ANION GAP 17.4 mmol/L (8-16); CALCIUM 7.5 mg/dL (8.4-10.2); CREATININE, SERUM 6.84 mg/dL (0.57-1.11); POTASSIUM 5.4 mmol/L (3.5-5.1)
[2023-02-12] MEDS ORDERED: FUROSEMIDE INJ 10 MG/ML 4 ML VIAL IV STA (02:30)
[2023-02-12] MEDS ORDERED: SODIUM BICARBONATE 8.4% INJ 50 ML SYR IV STA (02:43)
[2023-02-12] MEDS ORDERED: ALBUTEROL SULF 0.083% NEB SOLN 3 ML NEB NEB STA (02:43)
[2023-02-12] MEDS ORDERED: CALCIUM GLUCONATE 10% INJ 0.465 MEQ/ML VIAL IV STA (02:43)
[2023-02-12] MEDS ORDERED: INSULIN REGULAR, HUMAN 100 UNIT/1 ML IV ONE (02:45)
[2023-02-12] MEDS ORDERED: FUROSEMIDE INJ 10 MG/ML 10 ML VIAL IV ONE (02:45)
[2023-02-12] MEDS ORDERED: ONDANSETRON HCL INJ 2MG/ML 2ML 2 MG/ML VIAL IV PRN (02:45)
[2023-02-12] MEDS ORDERED: DEXTROSE 50% SYRINGE 50 ML IV ONE (02:45)
[2023-02-12] MEDS ORDERED: SODIUM CHLORIDE FLUSH 10 ML SYR INJ PRN ×2 (02:45→10:00)
[2023-02-12] MEDS ORDERED: FUROSEMIDE INJ 10 MG/ML 4 ML VIAL ONE (03:26)
[2023-02-12] MEDS ORDERED: FUROSEMIDE INJ 10 MG/ML 2 ML VIAL ONE (03:26)
[2023-02-12] MEDS ORDERED: FUROSEMIDE INJ 10 MG/ML 2 ML VIAL IV ONE (03:30)
[2023-02-12] MEDS ORDERED: CALCIUM GLUC 1 G/50 ML NACL 50 ML IV ONE (03:30)
[2023-02-12] MEDS ORDERED: FUROSEMIDE INJ 10 MG/ML 4 ML VIAL IV ONE (03:30)
[2023-02-12] MEDS: GABAPENTIN 300 MG CAP PO SCH ×2 (03:57→08:27)
[2023-02-12] MEDS: HYDROXYZINE HCL 25 MG TAB PO PRN ×2 (03:57→21:09)
[2023-02-12] MEDS ORDERED: ZESTRIL10 MG PO (06:26)
[2023-02-12] MEDS ORDERED: HYDROXYZIN10 MG/5 ML PO (06:26)
[2023-02-12] MEDS ORDERED: ULTRAM 50MG50 MG PO (06:26)
[2023-02-12] MEDS ORDERED: GABAPENTIN300 MG PO (06:26)
[2023-02-12] MEDS ORDERED: COREG3.125 MG PO (06:26)
[2023-02-12 07:39] LABS: BASOPHILS % 0.8 % (0.0-1.0); EOSINOPHILS # (AUTO) 0.3 (0.0-0.4); EOSINOPHILS % 5.6 % (0.0-6.0); HEMATOCRIT 34.4 % (34.2-44.1); HEMOGLOBIN 10.2 g/dL (12.0-16.0); LYMPHOCYTES # (AUTO) 0.6 (1.0-3.2); LYMPHOCYTES % 12.1 % (18.0-39.1); MEAN CORPUSCULAR HEMOGLOBIN 29.6 pg (28-32); MEAN CORPUSCULAR HGB CONC 29.7 g/dL (31-35); MEAN CORPUSCULAR VOLUME 99.7 fL (81-99); MONOCYTES # (AUTO) 1.1 (0.2-0.8); MONOCYTES % 19.8 % (4.4-11.3); NEUTROPHILS # (AUTO) 3.3 (2.1-6.9); NEUTROPHILS % 61.3 % (38.7-80.0); PLATELET COUNT 96 x10e3/uL (140-360); RED BLOOD COUNT 3.45 x10e6/uL (3.6-5.1)
[2023-02-12 07:58] LABS: ANION GAP 16.7 mmol/L (8-16); CALCIUM 7.5 mg/dL (8.4-10.2); CREATININE, SERUM 7.06 mg/dL (0.57-1.11); POTASSIUM 4.7 mmol/L (3.5-5.1)
[2023-02-12] MEDS ORDERED: ACETAMINOPHEN 325 MG TAB PO PRN (09:00)
[2023-02-12] MEDS ORDERED: MELATONIN 3 MG TAB PO PRN (09:00)
[2023-02-12] MEDS: FUROSEMIDE INJ 10 MG/ML 4 ML VIAL IV SCH ×2 (09:00→21:10)
[2023-02-12] MEDS: CARVEDILOL 3.125 MG TAB PO SCH ×2 (09:00→16:26)
[2023-02-12] MEDS ORDERED: DOCUSATE SODIUM 100 MG CAP PO PRN (09:00)
[2023-02-12] MEDS ORDERED: SIMETHICONE 80 MG CHEW PO PRN (09:00)
[2023-02-12] MEDS: PREGABALIN 50 MG CAP PO SCH ×2 (09:21→16:23)
[2023-02-12] MEDS ORDERED: CLOPIDOGREL BISULFATE 75 MG TAB PO ONE ×2 (10:15→12:25)
[2023-02-12 10:26] LABS: CHOL/HDL RATIO 2.1 (3.0-3.6)
[2023-02-12 13:26] LABS: THYROID STIMULATING HORMONE 0.616 uIU/mL (0.350-4.940)
[2023-02-12] MEDS: ATORVASTATIN 40 MG TAB PO SCH (21:09)
[2023-02-12] MEDS: DOXEPIN HCL 25 MG CAP PO SCH (21:09)
[2023-02-12] MEDS: CLONAZEPAM 1 MG TAB PO SCH (21:09)
[2023-02-13] VITALS (12 sets, daily range): BP systolic 122–160; BP diastolic 62–72; PULSE 63–79; RESP 16–20; TEMP 97.4–98.3; O2SAT 96–100
[2023-02-13 05:52] LABS: BASOPHILS # (AUTO) 0.1 (0.0-0.1); BASOPHILS % 1.4 % (0.0-1.0); EOSINOPHILS # (AUTO) 0.4 (0.0-0.4); EOSINOPHILS % 9.1 % (0.0-6.0); HEMATOCRIT 34.1 % (34.2-44.1); HEMOGLOBIN 10.3 g/dL (12.0-16.0); LYMPHOCYTES # (AUTO) 0.6 (1.0-3.2); LYMPHOCYTES % 14.1 % (18.0-39.1); MEAN CORPUSCULAR HEMOGLOBIN 29.6 pg (28-32); MEAN CORPUSCULAR HGB CONC 30.2 g/dL (31-35); MONOCYTES # (AUTO) 0.8 (0.2-0.8); MONOCYTES % 18.7 % (4.4-11.3); NEUTROPHILS # (AUTO) 2.3 (2.1-6.9); NEUTROPHILS % 56.2 % (38.7-80.0); PLATELET COUNT 91 x10e3/uL (140-360); RED BLOOD COUNT 3.48 x10e6/uL (3.6-5.1)
[2023-02-13 06:22] LABS: ALBUMIN 2.5 g/dL (3.5-5.0); ALBUMIN/GLOBULIN RATIO 0.7 (0.8-2.0); ANION GAP 15.1 mmol/L (8-16); CALCIUM 7.6 mg/dL (8.4-10.2); CREATININE, SERUM 5.43 mg/dL (0.57-1.11); POTASSIUM 5.1 mmol/L (3.5-5.1)
[2023-02-13] MEDS: PREGABALIN 50 MG CAP PO SCH ×2 (08:32→16:18)
[2023-02-13] MEDS: FUROSEMIDE INJ 10 MG/ML 4 ML VIAL IV SCH ×2 (08:57→21:50)
[2023-02-13] MEDS: CARVEDILOL 3.125 MG TAB PO SCH ×3 (08:57→16:18)
[2023-02-13] MEDS ORDERED: IOPAMIDOL 370 MG/ML 100 ML INFUS..BTL INJ ONE (09:26)
[2023-02-13] MEDS ORDERED: LIDOCAINE HCL 2% LOCAL 20 ML VIAL ONE (09:26)
[2023-02-13] MEDS ORDERED: HEPARIN SOD (PORCINE) 1000 UNIT/ML 30ML ONE (09:26)
[2023-02-13] MEDS ORDERED: NITROGLYCERIN/D5W 200 MCG/ML 250 ML ONE (09:26)
[2023-02-13] MEDS ORDERED: SODIUM CHLORIDE 0.9% 1000ML 1,000 ML ONE (09:26)
[2023-02-13] MEDS ORDERED: HEPARIN SOD/SOD CHLORIDE 2,000 ML ONE (09:26)
[2023-02-13] MEDS ORDERED: MIDAZOLAM HCL 2 MG/2 ML VIAL ONE (09:40)
[2023-02-13] MEDS ORDERED: FENTANYL CITRATE/PF 100MCG/2 ML INJ ONE (09:40)
[2023-02-13] MEDS ORDERED: HYDRALAZINE HCL 20 MG/ML VIAL ONE (09:49)
[2023-02-13] MEDS: ASPIRIN 81 MG ENTERIC COATED PO SCH (12:20)
[2023-02-13] MEDS: GABAPENTIN 300 MG CAP PO SCH (12:20)
[2023-02-13] MEDS ORDERED: ONDANSETRON HCL 4 MG ORAL DISINTEGRATING TAB PO PRN (13:30)
[2023-02-13] MEDS: HYDROXYZINE HCL 25 MG TAB PO PRN (17:34)
[2023-02-13] MEDS: BENZONATATE 100 MG CAP PO SCH ×2 (18:15→23:00)
[2023-02-13] MEDS ORDERED: GUAIFENESIN/DEXTROMETHORPHAN LIQD 5 ML UDC NG PRN (18:15)
[2023-02-13] MEDS ORDERED: ALBUTEROL/IPRATROPIUM 3 ML NEB NEB PRN (18:15)
[2023-02-13] MEDS: CLONAZEPAM 1 MG TAB PO SCH (21:00)
[2023-02-13] MEDS: ATORVASTATIN 40 MG TAB PO SCH (21:49)
[2023-02-13] MEDS: DOXEPIN HCL 25 MG CAP PO SCH (21:49)
[2023-02-14] VITALS (10 sets, daily range): BP systolic 109–161; BP diastolic 45–56; PULSE 56–77; RESP 16–22; TEMP 97.5–98.8; O2SAT 95–100
[2023-02-14] MEDS: Morphine 2mg Syringe 2 MG/ML SYR IV PRN ×2 (05:42→21:21)
[2023-02-14] MEDS: BENZONATATE 100 MG CAP PO SCH ×3 (05:42→21:20)
[2023-02-14] MEDS: HYDROXYZINE HCL 25 MG TAB PO PRN ×3 (05:42→21:20)
[2023-02-14 06:27] LABS: CALCIUM 7.8 mg/dL (8.4-10.2); CREATININE, SERUM 5.9 mg/dL (0.57-1.11)
[2023-02-14] MEDS: CARVEDILOL 3.125 MG TAB PO SCH (09:00)
[2023-02-14] MEDS: FUROSEMIDE INJ 10 MG/ML 4 ML VIAL IV SCH ×2 (09:23→21:20)
[2023-02-14] MEDS: PREGABALIN 50 MG CAP PO SCH ×2 (09:23→16:11)
[2023-02-14] MEDS: GABAPENTIN 300 MG CAP PO SCH (09:23)
[2023-02-14] MEDS: ASPIRIN 81 MG ENTERIC COATED PO SCH (09:23)
[2023-02-14] MEDS: LOSARTAN POTASSIUM 25 MG TAB PO SCH (11:00)
[2023-02-14] MEDS: CARVEDILOL 12.5 MG TAB PO SCH (16:12)
[2023-02-14] MEDS: DOXEPIN HCL 25 MG CAP PO SCH (21:15)
[2023-02-14] MEDS: CLONAZEPAM 1 MG TAB PO SCH (21:15)
[2023-02-14] MEDS: ATORVASTATIN 40 MG TAB PO SCH (21:15)
[2023-02-15] VITALS (7 sets, daily range): BP systolic 105–152; BP diastolic 55–68; PULSE 58–72; RESP 18–21; TEMP 97.1–99; O2SAT 94–99
[2023-02-15] MEDS: BENZONATATE 100 MG CAP PO SCH (06:00)
[2023-02-15] MEDS: CARVEDILOL 12.5 MG TAB PO SCH (09:00)
[2023-02-15] MEDS: ASPIRIN 81 MG ENTERIC COATED PO SCH (09:32)
[2023-02-15] MEDS: GABAPENTIN 300 MG CAP PO SCH (09:32)
[2023-02-15] MEDS: LOSARTAN POTASSIUM 25 MG TAB PO SCH (09:35)
[2023-02-15] MEDS: PREGABALIN 50 MG CAP PO SCH (09:40)
[2023-02-15] MEDS: FUROSEMIDE INJ 10 MG/ML 4 ML VIAL IV SCH (09:40)
[2023-02-15] MEDS ORDERED: ATORVASTATIN CA40 MG PO (10:05)
[2023-02-15] MEDS ORDERED: Benzonatate PO (10:05)
[2023-02-15] MEDS ORDERED: COZAAR25 MG PO (10:05)
[2023-02-15] MEDS ORDERED: ASPIRIN EC81 MG PO (10:05)
[2023-02-15] MEDS ORDERED: LASIX80 MG PO (10:05)
[2023-02-15] MEDS ORDERED: COREG12.5 MG PO (10:05)
[2023-02-15] MEDS ORDERED: GABAPENTIN300 MG PO (11:23)
[2023-02-15] MEDS ORDERED: HYDROXYZINE HCL25 MG PO (11:23)
[2023-02-15] MEDS ORDERED: FUROSEMIDE 40 MG TAB PO SCH (21:00)
== END 2023-02-15 12:32 | disposition home or self-care (01) | DRG 286 ==
LOC: ER 01:04 → ERHOLD 02:46 → MED/SURG2 04:46
PROVIDERS: ADMIT Internal Medicine; ATTEND Internal Medicine
PROC: 5A1D70Z Performance of Urinary Filtration, Intermittent, Less than 6 Hours Per Day (ICD-10-PCS; principal; 2023-02-12)
PROC: 4A023N7 Measurement of Cardiac Sampling and Pressure, Left Heart, Percutaneous Approach (ICD-10-PCS; 2023-02-13)
PROC: B2111ZZ Fluoroscopy of Multiple Coronary Arteries using Low Osmolar Contrast (ICD-10-PCS; 2023-02-13)
PROC: B2151ZZ Fluoroscopy of Left Heart using Low Osmolar Contrast (ICD-10-PCS; 2023-02-13)
DX: I13.2 Hypertensive heart and chronic kidney disease with heart failure and with stage 5 chronic kidney disease, or end stage renal disease (principal); I50.43 Acute on chronic combined systolic (congestive) and diastolic (congestive) heart failure; N18.6 End stage renal disease; E87.5 Hyperkalemia; I25.10 Atherosclerotic heart disease of native coronary artery without angina pectoris; E11.22 Type 2 diabetes mellitus with diabetic chronic kidney disease; D69.6 Thrombocytopenia, unspecified; J45.909 Unspecified asthma, uncomplicated; E66.9 Obesity, unspecified; Z68.31 Body mass index [BMI] 31.0-31.9, adult; D63.1 Anemia in chronic kidney disease; Z99.2 Dependence on renal dialysis; Z88.0 Allergy status to penicillin; Z79.82 Long term (current) use of aspirin; Z86.73 Personal history of transient ischemic attack (TIA), and cerebral infarction without residual deficits; Z90.49 Acquired absence of other specified parts of digestive tract
CPT/HCPCS: 36415; 71045; 80048; 80053; 80061; 82550; 83690; 83735; 83880; 84443; 84484; 85025; 85379; 86706; 87340; 93005; 93306; 93458; 94640; 94799; 99152; 99285; C1769; C1887; J0612; J1644; J1940; J2001; J2250; J2270; J3410; J7030; J7799; Q9967